=== PATIENT | male | born 2000 | race African-American/Black ===

== ENCOUNTER 2018-02-27 19:33 | Emergency (ER) | payer SELFPAY ==
[~2018-02-27] VITALS: Ht 182.9 cm; Wt 90.7 kg
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
[2018-02-27 20:03] VITALS: BP 132/59
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
== END 2018-02-27 20:40 | disposition home or self-care (01) ==
LOC: ER 19:33
DX: R06.00 Dyspnea, unspecified (principal)
CPT/HCPCS: 71046; 99283